=== PATIENT | male | born 1985 | race Caucasian/White ===

== ENCOUNTER 2019-06-06 15:28 | Emergency (ER) | payer MEDICAID ==
[~2019-06-06] VITALS: Ht 152.4 cm; Wt 68.0 kg
--- NOTE | 2019-06-06 15:40 | NUR ---
ALISTAIR RA [id number] Suicidal Ideation "Was recently discharged from [facility] this am now suicidal with plan to cut self" Patient a/ox4, breathing even and unlabored, no sob noted. Needs attended, called security for wanding. Attached to the monitoring specialist.
[2019-06-06 15:57] LABS: BASOPHILS % (AUTO) 0.5 % (0.0-2.0); EOSINOPHILS % (AUTO) 1.5 % (0.0-6.0); HEMATOCRIT 43 % (39-51); HEMOGLOBIN 14.3 g/dL (13.5-17.5); LYMPHOCYTES # (AUTO) 1.7 /CMM (0.8-4.8); LYMPHOCYTES % (AUTO) 28.1 % (20.0-44.0); MEAN CORPUSCULAR HGB CONC 33 g/dl (31.0-36.0); MEAN CORPUSCULAR VOLUME 92 fL (80-96); MONOCYTES # (AUTO) 0.6 /CMM (0.1-1.30); MONOCYTES % (AUTO) 10.2 % (2.0-12.0); NEUTROPHILS # (AUTO) 3.5 /CMM (1.8-8.9); NEUTROPHILS % (AUTO) 59.7 % (43.0-81.0); PLATELET COUNT (AUTO) 225 /CMM (150-450); RED BLOOD CELL COUNT(AUTO) 4.66 MIL/uL (4.5-6.0); WHITE BLOOD COUNT (AUTO) 5.9 K/uL (4.3-11.0)
--- NOTE | 2019-06-06 16:11 | NUR ---
Social service consult requested by Dr. Paul for suicidal ideations with a plan to overdose. JUNIOR SYSTEMS ANALYST met with the pt bedside. Pt is alert and oriented x 4. JUNIOR SYSTEMS ANALYST introduced self and explained her role. Pt reports as being homeless for the past 2 years. Pt. moved from [place] to [place]. Pt. has been homeless since then. Pt had his belongings bedside. Pt reports that he is suicidal with a plan to overdose on heroin. Pt. reports to methamphetamine use and last used yesterday. Pt has a psychiatric diagnosis of Schizoaffective Disorder. Pt. states, he is prescribed Wellbutrin and Abilify. Pt is non-complaint with his medications. Pt [facility] Pt has no [employer] insurance. JUNIOR SYSTEMS ANALYST met with ED admitting dept and they qualified pt. for presumptive [employer] insurance. JUNIOR SYSTEMS ANALYST contacted Andre at [facility] regarding accepting pt. Andre informed JUNIOR SYSTEMS ANALYST they will have a bed available for the pt to transfer to. RANDY Crocker has been updated and will follow up in faxin clinical referral packet to [facility] intake once labs results are available. TYSON Burgess has been updated with aforementioned information.
[2019-06-06 16:16] LABS: CALCIUM, SERUM 8.8 mg/dL (8.5-10.1); CARBON DIOXIDE 32 mmol/L (21-32); CHLORIDE 103 mmol/L (98-107); CREATININE 0.9 mg/dL (0.6-1.3); GLUCOSE 111 mg/dL (74-106); POTASSIUM 3.3 mmol/L (3.5-5.1); SODIUM SERUM 142 mmol/L (136-145); UREA NITROGEN, BLOOD 19 mg/dL (7-18)
[2019-06-06 16:18] LABS: ALANINE AMINOTRANSFERASE 32 U/L (12-78); ALBUMIN 3.7 g/dL (3.4-5.0); ALCOHOL, BLOOD < 3 mg/dL (0-0); ALKALINE PHOSPHATASE 57 U/L (46-116); ASPARTATE AMINOTRANSFERASE 25 U/L (15-37); BILIRUBIN,DIRECT 0.2 mg/dL (0.0-0.2); BILIRUBIN,TOTAL 0.7 mg/dL (0.2-1.0); TOTAL PROTEIN, SERUM 6.9 g/dL (6.4-8.2)
[2019-06-06 16:19] LABS: ACETAMINOPHEN 0 ug/ml (10-30)
--- NOTE | 2019-06-06 16:31 | NUR ---
encourage patient to give urine sample, water provided.
--- NOTE | 2019-06-06 16:32 | NUR ---
URINE COLLECTED AND SENT TO LAB
[2019-06-06 16:34] LABS: APPEARANCE,URINE Clear (CLEAR); BILIRUBIN,URINE SMALL (NEGATIVE); BLOOD, URINE Negative Ery/uL (NEGATIVE); COLOR,URINE Yellow (YELLOW); KETONES,URINE 15 (NEGATIVE); LEUKOCYTE ESTERASE ,URINE Negative (NEGATIVE); NITRITE, URINE Negative (NEGATIVE); PROTEIN,URINE Negative (NEGATIVE); UGLUCOSE Negative (NEGATIVE)
[2019-06-06 16:42] LABS: BACTERIA,URINE Rare /HPF (None Seen); RBC,URINE NONE SEEN /HPF (0-2); SQUAMOUS EPITHELIAL CELL,UR Few /HPF (None Seen); WBC,URINE NONE SEEN /HPF (0-3)
--- NOTE | 2019-06-06 17:47 | NUR ---
Patient is resting comfortably in bed with eyes closed. Easily aroused.
[2019-06-06] MEDS ORDERED: POTASSIUM CHLORIDE 20 MEQ TAB.PRT.SR PO ONE (17:59)
[2019-06-06] MEDS ORDERED: OLANZAPINE 5 MG TABLET ONE (17:59)
[2019-06-06] MEDS: OLANZAPINE 5 MG TABLET PO ONE (18:15)
[2019-06-06] MEDS: POTASSIUM CHLORIDE 20 MEQ TAB.PRT.SR PO ONE (18:15)
--- NOTE | 2019-06-06 19:09 | NUR ---
ENDORSED TO BARBARA PADILLA FOR BETSY
--- NOTE | 2019-06-06 20:38 | NUR ---
Patient is resting comfortably in bed. Easily aroused. VSS.
--- NOTE | 2019-06-06 23:53 | NUR ---
pt resting comfortbaly. vss.
--- NOTE | 2019-06-07 08:27 | NUR ---
SPORTS MANAGEMENT PROFESSOR followed up with [facility] intake inquiring why pt. was not accepted as of yet to [facility]. Per Morgan, at [facility], pt's clinical referral packet was sent at 6AM this morning. Clinicals are under review by nursing supervisor dock. SPORTS MANAGEMENT PROFESSOR updated RANDY Lambert in ED.
--- NOTE | 2019-06-07 12:03 | NUR ---
accepted [facility] dileep grijalva [phone]
--- NOTE | 2019-06-07 13:18 | NUR ---
[facility] CALLED ETA [id number] PER KIRA.
--- NOTE | 2019-06-07 13:50 | NUR ---
report given to scotty nursing supervisor sanding at [facility]
[2019-06-07 15:30] VITALS: BP 119/75
--- NOTE | 2019-06-07 15:56 | NUR ---
private ambulance transport in facility, report given to staff
== END 2019-06-07 16:03 | disposition short-term general hospital (02) ==
LOC: ER 15:36
DX: R45.851 Suicidal ideations (principal); F19.10 Other psychoactive substance abuse, uncomplicated; E87.6 Hypokalemia; F20.9 Schizophrenia, unspecified; F17.200 Nicotine dependence, unspecified, uncomplicated; Z59.0 Homelessness
CPT/HCPCS: 36415; 80048; 80076; 80305; 80307; 80329; 81001; 85025; 99285; G0480; 81000-TC